=== PATIENT | male | born 1950 | race Caucasian/White ===

== ENCOUNTER → 2016-09-26 | Outpatient (CLI) | payer MEDICARE, OTHER ==
[2016-09-26 17:14] LABS: RED BLOOD COUNT 3.82 M/UL (4.20-5.50); WHITE BLOOD COUNT 3.5 K/UL (4.5-11.0)
[2016-09-26 17:33] LABS: BUN/CREATININE RATIO 17 (0-10)
== END ==
LOC: RAD 16:29
PROVIDERS: Nurse Practitioner Primary Care
DX: R05 Cough (principal); N39.0 Urinary tract infection, site not specified; E03.9 Hypothyroidism, unspecified; G40.909 Epilepsy, unspecified, not intractable, without status epilepticus; M54.9 Dorsalgia, unspecified; G89.29 Other chronic pain; I10 Essential (primary) hypertension; E78.5 Hyperlipidemia, unspecified; N18.9 Chronic kidney disease, unspecified; D64.9 Anemia, unspecified; N40.0 Benign prostatic hyperplasia without lower urinary tract symptoms; K59.09 Other constipation; R80.9 Proteinuria, unspecified; J42 Unspecified chronic bronchitis
CPT/HCPCS: 71020; 80053; 85027; 87040

== ENCOUNTER 2020-07-15 20:15 | Emergency (ER) | payer MEDICARE, OTHER ==
[~2020-07-15 20:15] MED LIST: ADULT GLYCERIN1 EACH PR; BACTRIM DS TAB1 EACH PO; FLOMAX0.4 MG PO; KEFLEX500 MG PO; VIBRAMYCIN100 MG PO
[2020-07-15 20:50] LABS: HEMOGLOBIN 12.8 gm/dl (14.0-17.5); RED BLOOD COUNT 4.21 M/UL (4.20-5.50); WHITE BLOOD COUNT 7.1 K/UL (4.5-11.0)
[2020-07-15 21:11] LABS: BUN/CREATININE RATIO 18 (0-10)
[2020-07-17] MEDS ORDERED: ZOFRAN4 MG PO (22:04)
== END 2020-07-16 01:30 | disposition home or self-care (01) ==
LOC: ER1 20:15
PROVIDERS: Emergency Medicine
DX: R07.9 Chest pain, unspecified (principal); M79.644 Pain in right finger(s); I10 Essential (primary) hypertension; F17.200 Nicotine dependence, unspecified, uncomplicated; Z88.6 Allergy status to analgesic agent; Z88.8 Allergy status to other drugs, medicaments and biological substances
CPT/HCPCS: 71045; 73130; 80053; 82550; 82553; 83690; 83874; 84484; 85025; 93005; 96365; 99285

== ENCOUNTER 2020-07-17 17:06 | Emergency (ER) | payer MEDICARE, OTHER ==
[2020-07-17 17:33] LABS: HEMOGLOBIN 12.7 gm/dl (14.0-17.5); RED BLOOD COUNT 4.17 M/UL (4.20-5.50); WHITE BLOOD COUNT 8.3 K/UL (4.5-11.0)
[2020-07-17 18:10] LABS: BUN/CREATININE RATIO 24 (0-10)
[2020-07-17] MEDS ORDERED: ZOFRAN4 MG PO (22:04)
== END 2020-07-17 22:30 | disposition home or self-care (01) ==
LOC: ER1 17:06
DX: K59.00 Constipation, unspecified (principal); R07.89 Other chest pain; R91.8 Other nonspecific abnormal finding of lung field; K40.90 Unilateral inguinal hernia, without obstruction or gangrene, not specified as recurrent; I10 Essential (primary) hypertension; Z88.6 Allergy status to analgesic agent; Z88.8 Allergy status to other drugs, medicaments and biological substances; Z20.822 Contact with and (suspected) exposure to COVID-19
CPT/HCPCS: 71045; 80053; 81001; 82550; 82553; 83690; 83874; 84484; 85025; 93005; 96374; 99285; J2405; Q9967; U0002

== ENCOUNTER 2020-10-28 11:47 | Emergency (ER) | payer MEDICARE, OTHER ==
[~2020-10-28 11:47] MED LIST changes: +ZOFRAN4 MG PO
[2020-10-28] MEDS ORDERED: CEFUROXIME500 MG PO (13:08)
== END 2020-10-28 13:26 | disposition home or self-care (01) ==
LOC: ER1 11:47
DX: N39.0 Urinary tract infection, site not specified (principal); R33.9 Retention of urine, unspecified; K59.00 Constipation, unspecified
CPT/HCPCS: 51702; 81001; 99283

== ENCOUNTER 2020-11-07 11:15 | Emergency (ER) | payer MEDICARE, OTHER ==
[~2020-11-07 11:15] MED LIST changes: +CEFUROXIME500 MG PO
[2020-11-07 12:54] LABS: RED BLOOD COUNT 4.21 M/UL (4.20-5.50); WHITE BLOOD COUNT 5.9 K/UL (4.5-11.0)
[2020-11-07 13:13] LABS: BUN/CREATININE RATIO 16 (0-10)
== END 2020-11-07 14:20 | disposition home or self-care (01) ==
LOC: ER1 11:15
PROVIDERS: Emergency Medicine
DX: R33.9 Retention of urine, unspecified (principal); E03.9 Hypothyroidism, unspecified; E66.9 Obesity, unspecified; Z95.4 Presence of other heart-valve replacement; G40.909 Epilepsy, unspecified, not intractable, without status epilepticus
CPT/HCPCS: 51702; 80048; 81001; 85025; 99283

== ENCOUNTER → 2021-04-24 | Outpatient (CLI) | payer MEDICARE, OTHER | LOC: KOH-I 14:38 | DX: R76.11 Nonspecific reaction to tuberculin skin test without active tuberculosis (principal); R91.8 Other nonspecific abnormal finding of lung field | CPT/HCPCS: 71045 ==

== ENCOUNTER → 2021-10-09 | Outpatient (CLI) | payer MEDICARE, OTHER | LOC: KOH-I 10:06 | DX: E66.9 Obesity, unspecified (principal); R80.9 Proteinuria, unspecified; E03.9 Hypothyroidism, unspecified; E78.5 Hyperlipidemia, unspecified; R56.9 Unspecified convulsions; R76.11 Nonspecific reaction to tuberculin skin test without active tuberculosis; R91.8 Other nonspecific abnormal finding of lung field | CPT/HCPCS: 71046 ==

== ENCOUNTER → 2021-12-19 | Outpatient (CLI) | payer MEDICARE, OTHER | LOC: KOH-I 16:37 | DX: J20.9 Acute bronchitis, unspecified (principal); U09.9 Post COVID-19 condition, unspecified; R91.8 Other nonspecific abnormal finding of lung field | CPT/HCPCS: 71046 ==

== ENCOUNTER 2021-12-28 20:37 | Emergency (ER) | payer MEDICARE, OTHER | END 2021-12-28 23:31 | disposition home or self-care (01) | LOC: ER1 20:37 | DX: R07.81 Pleurodynia (principal); R41.0 Disorientation, unspecified; E78.5 Hyperlipidemia, unspecified; I10 Essential (primary) hypertension | CPT/HCPCS: 71045; 99283 ==

== ENCOUNTER 2022-01-11 11:50 | Emergency (ER) | payer MEDICARE, OTHER ==
[2022-01-11 13:25] LABS: HEMOGLOBIN 12.7 gm/dl (14.0-17.5); RED BLOOD COUNT 3.99 M/UL (4.20-5.50); WHITE BLOOD COUNT 5.6 K/UL (4.5-11.0)
[2022-01-11 13:35] LABS: BUN/CREATININE RATIO 14 (0-10)
== END 2022-01-11 15:20 | disposition home or self-care (01) ==
LOC: ER1 11:50
PROVIDERS: Physician Assistant
DX: R07.9 Chest pain, unspecified (principal); R00.1 Bradycardia, unspecified; F17.210 Nicotine dependence, cigarettes, uncomplicated; I10 Essential (primary) hypertension; G40.909 Epilepsy, unspecified, not intractable, without status epilepticus; Z88.6 Allergy status to analgesic agent; Z88.8 Allergy status to other drugs, medicaments and biological substances
CPT/HCPCS: 71045; 80053; 82550; 82553; 83605; 84484; 85025; 93005; 96374; 99285; J2060

== ENCOUNTER 2022-03-25 10:31 | Emergency (ER) | payer MEDICARE, OTHER ==
[2022-03-25 14:10] LABS: HEMOGLOBIN 13.2 gm/dl (14.0-17.5); RED BLOOD COUNT 4.12 M/UL (4.20-5.50); WHITE BLOOD COUNT 10.1 K/UL (4.5-11.0)
[2022-03-25 14:32] LABS: BUN/CREATININE RATIO 24 (0-10)
[2022-03-25] MEDS ORDERED: IBUPROFEN600 MG PO (15:04)
== END 2022-03-25 15:17 | disposition home or self-care (01) ==
LOC: ER1 10:31
PROVIDERS: Emergency Medicine
DX: M16.12 Unilateral primary osteoarthritis, left hip (principal); M17.12 Unilateral primary osteoarthritis, left knee; I10 Essential (primary) hypertension; F17.200 Nicotine dependence, unspecified, uncomplicated; Z88.6 Allergy status to analgesic agent; Z88.8 Allergy status to other drugs, medicaments and biological substances
CPT/HCPCS: 73502; 73560; 73590; 80053; 82550; 82553; 84484; 85025; 85652; 86140; 93925; 93971; 96372; 99284; J2250